=== PATIENT | male | born 2000 | race Two or more races ===

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

== ENCOUNTER 2019-11-11 03:39 | Emergency (ER) | payer OTHER ==
--- NOTE | 2019-11-11 03:49 | ED ---
Substance Abuse/Use - HPI Summary HPI Summary: The patient is a 19 y/o male arriving by ambulance with police as 2208 to [facility] with a chief complaint of alcohol intoxication tonight. Per police, the patient had been found on the street without a shirt or jacket on despite the cold weather. He was then unable to be caught until a friend found him in his bed who took the patient back to his fraternity house. On the car ride, he had been nauseous with active vomiting. [facility] evaluated the patient, and since he was unable to answer standard questions appropriate, the police were called. The patient attempted to run at first but then had been complaint. In the ED, he denies any substance use outside the alcohol tonight. No PMHx. Nonsmoker, no substance use. Medications reviewed. Allergies noted. - History Of Current Complaint Stated Complaint: 2208 PER EMS Hx Obtained From: Patient, EMS, Other: - police Ingestion History: Type/Name Of Drug - alcohol Timing Of Abuse: Binge Use Severity Initially: Moderate Severity Currently: Moderate Aggravating Factor(s): Nothing Alleviating Factor(s): Nothing Associated Signs And Symptoms: Nausea, Vomiting - Allergies/Home Medications Allergies/Adverse Reactions: Allergies Allergy/AdvReac Type Severity Reaction Status Date / Time No Known Allergies Allergy Verified 11/11/19 03:54 Home Medications: Home Medications NK [No Home Medications Reported] 11/11/19 [History Confirmed 11/11/19] PMH/Surg Hx/FS Hx/Imm Hx Endocrine/Hematology History: Denies: Hx Anticoagulant Therapy Cardiovascular History: Denies: Hx Hypertension - Surgical History Surgical History: None Surgery Procedure, Year, and Place: none - Family History Known Family History: Negative: Cardiac Disease - Social History Alcohol Use: Occasionally Hx Substance Use: No Substance Use Type: Reports: None Hx Tobacco Use: No Smoking Status (MU): Never Smoked Tobacco Review of Systems Positive: Vomiting, Nausea Positive: Other - alcohol intoxicated All Other Systems Reviewed And Are Negative: Yes Physical Exam - Summary Physical Exam Summary: Appearance: Well-appearing, Well-nourished, lying in bed comfortably Skin: Warm, dry, no obvious rash Eyes: sclera anicteric, no conjunctival pallor ENT: mucous membranes moist, pharynx appears normal Neck: Supple, nontender Respiratory: Clear to auscultation, no signs of respiratory distress Cardiovascular: Normal S1, S2. No murmurs. Normal distal pulses in tibial and radial bilaterally. Abdomen: Soft, nontender, normal active bowel sounds present Musculoskeletal: Normal, Strength/ROM Intact Neurological: Awake, alert, answering questions appropriately Psychiatric: affect is normal, does not appear anxious or depressed Triage Information Reviewed: Yes Vital Signs Reviewed: Yes Procedures - Sedation Patient Received Moderate/Deep Sedation with Procedure: No Course/Dx - Course Course Of Treatment: 19 y/o male brought in as 2209 for alcohol intoxication tonight with inability to answer standard questions initially as well as nausea and vomiting. Physical exam reveals patient to be awake, alert, and answering questions appropriately. Serum alcohol measured to be 248 at 0410. The patient is a sign-out from Dr. Sam Loaiza MD, to Dr. Brandie Adames MD, at change of shift at 0700 on 11/11/2019, pending sobriety and discharge. - Diagnoses Provider Diagnoses: Alcohol abuse Discharge ED - Sign-Out/Discharge Documenting (check all that apply): Sign-Out Patient Signing out patient TO: Brandie Adames - Patient is a sign-out to Dr. Brandie Adames MD, at 0700 on 11/11/2019, pending sobriety and discharge. - Discharge Plan Condition: Improved Disposition: HOME Patient Education Materials: Abuse of Alcohol (ED) Referrals: [facility],[place] [Primary Care Provider] - - Attestation Statements Document Initiated by Scribe: Yes Documenting Scribe: Kelley William Provider For Whom Robinson is Documenting (Include Credential): Dr. Sam Loaiza MD Scribe Attestation: Kelley Mason scribed for Dr. Sam Loaiza MD on 11/11/19 at 0640. Status of Scribe Document: Ready
--- NOTE | 2019-11-11 07:22 | ED ---
Progress - Progress Note Progress Note: This pt is a sign out to Dr. Adames from at shift change 0700 2019 pending sobriety and disposition Patient was able to ambulate safely, alert and oriented 3. Course/Dx - Course Course Of Treatment: This pt is a sign out to Dr. Adames from at shift change 0700 11/11/2019 pending sobriety and disposition. - Diagnoses Provider Diagnoses: Alcohol abuse Discharge ED - Sign-Out/Discharge Documenting (check all that apply): Patient Departure - discharge - Discharge Plan Condition: Improved Disposition: HOME Patient Education Materials: Abuse of Alcohol (ED) [facility] - - Billing Disposition and Condition Condition: IMPROVED Disposition: Home - Attestation Statements Document Initiated by Robinson: Yes Documenting Scribe: Mak Perez Provider For Whom Davide is Documenting (Include Credential): Brandie Adames MD Scribe Attestation: IMak, scribed for Brandie Adames MD on 11/11/19 at 1617. Scribe Documentation Reviewed: Yes Provider Attestation: The documentation as recorded by the Mak mari accurately reflects the service I personally performed and the decisions made by , Brandie Adames MD Status of Scribe Document: Viewed
[2019-11-11 08:23] VITALS: BP 123/82
== END 2019-11-11 08:23 | disposition home or self-care (01) ==
LOC: ED 03:39
DX: F10.129 Alcohol abuse with intoxication, unspecified (principal); Y90.8 Blood alcohol level of 240 mg/100 ml or more; R11.2 Nausea with vomiting, unspecified
CPT/HCPCS: 36415; 80320; 99283; G0480